=== PATIENT | male | born 1950 | race Caucasian/White ===

== ENCOUNTER 2018-01-04 17:50 | Inpatient (IN) | payer MEDICARE, MEDICAID ==
[~2018-01-04] VITALS: Ht 182.9 cm; Wt 109.3 kg
[~2018-01-04 17:50] MED LIST: ALBU18HF2 INH; BUDE10.2 INH; BUPR-94 PO; DOL10T PO; DULO20CA50 PO; FURO20TA4 PO; GABA-532 PO; HYDR-565 PO; MIRT45TA6 PO; NAPR-1166 PO; OMEP40CA37 PO; POTA8CAP9 PO; SIMV20TA PO; TERA2CAP4 PO
[2018-01-04] MEDS ORDERED: ipratropium/albuterol 3ml nebule NEB ONE (18:20)
[2018-01-04 18:23] LABS: BASOPHILS % (AUTO) 0.2 % (0-1); EOSINOPHILS # (AUTO) 0.3 X10'3 (0-0.9); EOSINOPHILS % (AUTO) 2.3 % (0-6); HEMATOCRIT 34.3 % (42.0-52.0); HEMOGLOBIN 11.5 g/dl (14.0-17.9); LYMPHOCYTES # (AUTO) 1.7 X10'3 (1.1-4.8); LYMPHOCYTES % (AUTO) 15.7 % (21-51); MEAN CORPUSCULAR HEMOGLOBIN 34.1 PG (27.0-31.0); MEAN CORPUSCULAR HGB CONC 33.6 % (33.0-36.5); MEAN CORPUSCULAR VOLUME 101.4 FL (78-98); MEAN PLATELET VOLUME 7.5 FL (7.4-10.4); MONOCYTES # (AUTO) 0.5 X10'3 (0-0.9); MONOCYTES % (AUTO) 4.8 % (2-12); NEUTROPHILS # (AUTO) 8.4 X10'3 (1.8-7.7); PLATELET COUNT 312 X10'3 (140-440); RED BLOOD COUNT 3.38 X10'6 (4.70-6.10); RED CELL DISTRIBUTION WIDTH 16.3 % (11.5-14.5); WHITE BLOOD COUNT 10.9 X10'3 (4.5-11.0)
[2018-01-04 18:33] LABS: INR 1.1 INR; PARTIAL THROMBOPLASTIN TIME 37 SECONDS (22-32); PROTHROMBIN TIME 11.3 SECONDS (9.0-12.0)
[2018-01-04] MEDS ORDERED: HYDROcodone/acetaminophen 10/325mg tab PO ONE (18:35)
[2018-01-04] MEDS ORDERED: ondansetron 4mg rapidly disintigrating tab PO ONE (18:35)
[2018-01-04 18:46] LABS: ALANINE AMINOTRANSFERASE 154 U/L (12-78); ALBUMIN 2.2 G/DL (3.4-5.0); ALBUMIN/GLOBULIN RATIO 0.4 (1.1-1.5); ALKALINE PHOSPHATASE 119 IU/L (46-116); ANION GAP 7 (8-16); ASPARTATE AMINO TRANSFERASE 117 U/L (10-37); BILIRUBIN,TOTAL 0.3 MG/DL (0.1-1.0); BLOOD UREA NITROGEN 16 MG/DL (7-18); BUN/CREATININE RATIO 16.3 (5.4-32.0); CALCIUM 8.5 MG/DL (8.5-10.1); CHLORIDE 97 MMOL/L (99-107); CREATININE 0.98 MG/DL (0.60-1.10); GLUCOSE 118 MG/DL (70-104); POTASSIUM 4.3 MMOL/L (3.5-5.1); SODIUM 138 MMOL/L (135-145); TOTAL CARBON DIOXIDE 34.5 MMOL/L (24-32); TOTAL PROTEIN 7.4 G/DL (6.4-8.2); eGFR 77 ML/MIN
[2018-01-04] MEDS ORDERED: azithromycin/NS 500mg/250ml 250 ML IV ONE (19:00)
[2018-01-04 19:25] LABS: MAGNESIUM 1.9 MG/DL (1.5-2.4)
[2018-01-04] MEDS ORDERED: normal saline 1000ML IV soln IVB ONE (19:30)
[2018-01-04] MEDS ORDERED: cefepime 2g/NS 100ml ADVANTAGE 100 ML IV SCH (20:00)
[2018-01-04] MEDS ORDERED: vancomycin/NS 1 GM ADD-VANTAGE 250 ML IV SCH (20:00)
[2018-01-04] MEDS ORDERED: vancomycin/NS 1 GM ADD-VANTAGE 250 ML X 1 DOSE IV ONE (20:35)
[2018-01-04] MEDS ORDERED: acetaminophen 325mg tablet PO PRN (22:10)
[2018-01-04] MEDS ORDERED: ipratropium/albuterol 3ml nebule NEB PRN (22:10)
[2018-01-04] MEDS ORDERED: mag hydrox/Alum hydrox/simeth 30ml oral suspension PO PRN (22:10)
[2018-01-04] MEDS ORDERED: magnesium hydroxide 30ml (MOM) UD suspension PO PRN (22:10)
[2018-01-04] MEDS: normal saline 1000ml 1,000 ML IV SCH (22:36)
[2018-01-05] MEDS ORDERED: rivaroxaban 20mg tablet PO SCH (08:00)
[2018-01-05] MEDS ORDERED: furosemide 20MG tablet PO SCH (08:00)
[2018-01-05] MEDS ORDERED: HYDROcodone/acetaminophen 10/325mg tab PO PRN ×2 (08:00→14:20)
[2018-01-05] MEDS ORDERED: naproxen 375mg tablet PO SCH (08:00)
[2018-01-05 08:34] LABS: BASOPHILS % (AUTO) 0.3 % (0-1); EOSINOPHILS # (AUTO) 0.2 X10'3 (0-0.9); EOSINOPHILS % (AUTO) 2.6 % (0-6); HEMATOCRIT 32.3 % (42.0-52.0); HEMOGLOBIN 10.9 g/dl (14.0-17.9); LYMPHOCYTES # (AUTO) 1.2 X10'3 (1.1-4.8); MEAN CORPUSCULAR HGB CONC 33.8 % (33.0-36.5); MEAN CORPUSCULAR VOLUME 100.7 FL (78-98); MEAN PLATELET VOLUME 7.6 FL (7.4-10.4); MONOCYTES # (AUTO) 0.6 X10'3 (0-0.9); MONOCYTES % (AUTO) 7.3 % (2-12); NEUTROPHILS # (AUTO) 6.2 X10'3 (1.8-7.7); NEUTROPHILS % (AUTO) 74.8 % (42-75); PLATELET COUNT 331 X10'3 (140-440); RED CELL DISTRIBUTION WIDTH 16.4 % (11.5-14.5); WHITE BLOOD COUNT 8.2 X10'3 (4.5-11.0)
[2018-01-05 08:52] LABS: ALANINE AMINOTRANSFERASE 125 U/L (12-78); ALBUMIN 2.1 G/DL (3.4-5.0); ALBUMIN/GLOBULIN RATIO 0.4 (1.1-1.5); ALKALINE PHOSPHATASE 108 IU/L (46-116); ANION GAP 4 (8-16); ASPARTATE AMINO TRANSFERASE 83 U/L (10-37); BILIRUBIN,TOTAL 0.4 MG/DL (0.1-1.0); BLOOD UREA NITROGEN 10 MG/DL (7-18); BUN/CREATININE RATIO 14.7 (5.4-32.0); CALCIUM 8.7 MG/DL (8.5-10.1); CHLORIDE 101 MMOL/L (99-107); CREATININE 0.68 MG/DL (0.60-1.10); GLUCOSE 89 MG/DL (70-104); POTASSIUM 4.3 MMOL/L (3.5-5.1); SODIUM 142 MMOL/L (135-145); TOTAL PROTEIN 7.2 G/DL (6.4-8.2); eGFR > 90 ML/MIN
[2018-01-05 09:00] VITALS: BP 120/74
[2018-01-05] MEDS: duloxetine 20mg capsule.DR PO SCH (09:02)
[2018-01-05] MEDS: furosemide 20 MG/2 ML vial IV SCH ×2 (09:05→19:59)
[2018-01-05] MEDS: cefepime 2g/NS 100ml ADVANTAGE 100 ML IV SCH ×2 (09:06→19:59)
[2018-01-05] MEDS: potassium chloride 8mEq ER tablet PO SCH (09:06)
[2018-01-05] MEDS: apixaban 5mg tablet PO SCH ×2 (09:06→19:57)
[2018-01-05] MEDS: atorvastatin 10mg tablet PO SCH (09:07)
[2018-01-05] MEDS: predniSONE 20 mg tablet PO SCH (09:08)
[2018-01-05] MEDS: gabapentin 300mg capsule PO SCH (09:08)
[2018-01-05] MEDS: fluticasone/vilanterol 200mcg/25mcg inhaler IH SCH (09:21)
[2018-01-05] MEDS: normal saline 1000ml 1,000 ML IV SCH ×2 (09:23→18:09)
[2018-01-05 11:40] VITALS: BP 116/64
[2018-01-05 19:30] VITALS: BP 124/83
[2018-01-05] MEDS: lactobacillus rhamnosus 10,000 MMU CELLS/CAPSULE PO SCH (19:57)
[2018-01-05] MEDS: HYDROcodone/acetaminophen 10/325mg tab PO PRN (19:58)
[2018-01-05] MEDS: methadone 10mg tablet PO SCH (21:47)
[2018-01-06] VITALS: BP 128/78
[2018-01-06] MEDS: normal saline 1000ml 1,000 ML IV SCH ×2 (00:28→11:36)
[2018-01-06] MEDS ORDERED: VANCOMYCIN LEVEL IV ONE (03:30)
[2018-01-06 03:56] LABS: BASOPHILS # (AUTO) 0.1 X10'3 (0-0.2); BASOPHILS % (AUTO) 1.2 % (0-1); HEMATOCRIT 31.9 % (42.0-52.0); LYMPHOCYTES # (AUTO) 1.3 X10'3 (1.1-4.8); LYMPHOCYTES % (AUTO) 25.7 % (21-51); MEAN CORPUSCULAR HEMOGLOBIN 33.8 PG (27.0-31.0); MEAN CORPUSCULAR HGB CONC 34.4 % (33.0-36.5); MEAN CORPUSCULAR VOLUME 98.3 FL (78-98); MEAN PLATELET VOLUME 8.4 FL (7.4-10.4); MONOCYTES # (AUTO) 0.4 X10'3 (0-0.9); MONOCYTES % (AUTO) 8.3 % (2-12); NEUTROPHILS # (AUTO) 3.2 X10'3 (1.8-7.7); NEUTROPHILS % (AUTO) 63.8 % (42-75); PLATELET COUNT 251 X10'3 (140-440); RED BLOOD COUNT 3.25 X10'6 (4.70-6.10); RED CELL DISTRIBUTION WIDTH 18.3 % (11.5-14.5)
[2018-01-06 06:08] LABS: ALANINE AMINOTRANSFERASE 129 U/L (12-78); ALBUMIN 1.9 G/DL (3.4-5.0); ALBUMIN/GLOBULIN RATIO 0.4 (1.1-1.5); ALKALINE PHOSPHATASE 100 IU/L (46-116); ANION GAP 2 (8-16); ASPARTATE AMINO TRANSFERASE 105 U/L (10-37); BILIRUBIN,TOTAL 0.3 MG/DL (0.1-1.0); BLOOD UREA NITROGEN 15 MG/DL (7-18); BUN/CREATININE RATIO 21.4 (5.4-32.0); CALCIUM 8.6 MG/DL (8.5-10.1); CHLORIDE 104 MMOL/L (99-107); GLUCOSE 98 MG/DL (70-104); POTASSIUM 4.3 MMOL/L (3.5-5.1); SODIUM 144 MMOL/L (135-145); TOTAL CARBON DIOXIDE 38.2 MMOL/L (24-32); TOTAL PROTEIN 6.9 G/DL (6.4-8.2); VANCOMYCIN,TROUGH 15.1 UG/ML (6.0-14.0); eGFR > 90 ML/MIN
[2018-01-06] MEDS: fluticasone/vilanterol 200mcg/25mcg inhaler IH SCH (07:42)
[2018-01-06 08:00] VITALS: BP 124/78
[2018-01-06] MEDS: cefepime 2g/NS 100ml ADVANTAGE 100 ML IV SCH ×2 (08:13→20:22)
[2018-01-06] MEDS: furosemide 20 MG/2 ML vial IV SCH ×2 (08:16→20:23)
[2018-01-06] MEDS: lactobacillus rhamnosus 10,000 MMU CELLS/CAPSULE PO SCH ×2 (08:20→20:23)
[2018-01-06] MEDS: apixaban 5mg tablet PO SCH ×2 (08:21→20:23)
[2018-01-06] MEDS: duloxetine 20mg capsule.DR PO SCH (08:21)
[2018-01-06] MEDS: potassium chloride 8mEq ER tablet PO SCH (08:21)
[2018-01-06] MEDS: atorvastatin 10mg tablet PO SCH (08:22)
[2018-01-06] MEDS: gabapentin 300mg capsule PO SCH (08:23)
[2018-01-06] MEDS: predniSONE 20 mg tablet PO SCH (08:23)
[2018-01-06] MEDS: HYDROcodone/acetaminophen 10/325mg tab PO PRN ×3 (08:26→21:37)
[2018-01-06 11:00] VITALS: BP 117/72
[2018-01-06 18:00] VITALS: BP 117/64
[2018-01-06] MEDS: methadone 10mg tablet PO SCH (20:23)
[2018-01-07] VITALS: BP 126/72
[2018-01-07] MEDS: normal saline 1000ml 1,000 ML IV SCH ×3 (00:09→11:21)
[2018-01-07] MEDS: HYDROcodone/acetaminophen 10/325mg tab PO PRN ×3 (05:13→17:33)
[2018-01-07 05:56] LABS: BASOPHILS % (AUTO) 0.3 % (0-1); EOSINOPHILS # (AUTO) 0.1 X10'3 (0-0.9); EOSINOPHILS % (AUTO) 1.5 % (0-6); HEMATOCRIT 33.9 % (42.0-52.0); HEMOGLOBIN 11.1 g/dl (14.0-17.9); LYMPHOCYTES # (AUTO) 2.1 X10'3 (1.1-4.8); LYMPHOCYTES % (AUTO) 35.3 % (21-51); MEAN CORPUSCULAR HEMOGLOBIN 33.4 PG (27.0-31.0); MEAN CORPUSCULAR HGB CONC 32.9 % (33.0-36.5); MEAN CORPUSCULAR VOLUME 101.4 FL (78-98); MEAN PLATELET VOLUME 7.8 FL (7.4-10.4); MONOCYTES # (AUTO) 0.5 X10'3 (0-0.9); NEUTROPHILS # (AUTO) 3.3 X10'3 (1.8-7.7); NEUTROPHILS % (AUTO) 54.9 % (42-75); PLATELET COUNT 381 X10'3 (140-440); RED BLOOD COUNT 3.34 X10'6 (4.70-6.10)
[2018-01-07 06:42] LABS: ALANINE AMINOTRANSFERASE 122 U/L (12-78); ALBUMIN 2.1 G/DL (3.4-5.0); ALBUMIN/GLOBULIN RATIO 0.4 (1.1-1.5); ALKALINE PHOSPHATASE 94 IU/L (46-116); ANION GAP 6 (8-16); ASPARTATE AMINO TRANSFERASE 74 U/L (10-37); BILIRUBIN,TOTAL 0.3 MG/DL (0.1-1.0); BLOOD UREA NITROGEN 16 MG/DL (7-18); BUN/CREATININE RATIO 22.5 (5.4-32.0); CALCIUM 8.7 MG/DL (8.5-10.1); CHLORIDE 103 MMOL/L (99-107); CREATININE 0.71 MG/DL (0.60-1.10); GLUCOSE 89 MG/DL (70-104); SODIUM 143 MMOL/L (135-145); TOTAL CARBON DIOXIDE 34.5 MMOL/L (24-32); TOTAL PROTEIN 7.1 G/DL (6.4-8.2); eGFR > 90 ML/MIN
[2018-01-07 08:00] VITALS: BP 124/84
[2018-01-07] MEDS: cefepime 2g/NS 100ml ADVANTAGE 100 ML IV SCH ×2 (08:19→21:26)
[2018-01-07] MEDS: duloxetine 20mg capsule.DR PO SCH (08:27)
[2018-01-07] MEDS: gabapentin 300mg capsule PO SCH (08:27)
[2018-01-07] MEDS: lactobacillus rhamnosus 10,000 MMU CELLS/CAPSULE PO SCH ×2 (08:27→21:26)
[2018-01-07] MEDS: atorvastatin 10mg tablet PO SCH (08:27)
[2018-01-07] MEDS: predniSONE 20 mg tablet PO SCH (08:28)
[2018-01-07] MEDS: potassium chloride 8mEq ER tablet PO SCH (08:28)
[2018-01-07] MEDS: furosemide 20 MG/2 ML vial IV SCH ×2 (08:31→21:26)
[2018-01-07] MEDS: apixaban 5mg tablet PO SCH ×2 (08:31→21:26)
[2018-01-07] MEDS: fluticasone/vilanterol 200mcg/25mcg inhaler IH SCH (10:27)
[2018-01-07 11:00] VITALS: BP 129/79
[2018-01-07 20:00] VITALS: BP 126/80
[2018-01-07] MEDS: methadone 10mg tablet PO SCH (21:26)
[2018-01-07 23:00] VITALS: BP 134/79
[2018-01-08] MEDS: HYDROcodone/acetaminophen 10/325mg tab PO PRN ×4 (00:50→21:23)
[2018-01-08 06:00] VITALS: BP 149/82
[2018-01-08] MEDS: normal saline 1000ml 1,000 ML IV SCH ×2 (06:09→14:35)
[2018-01-08 06:16] LABS: BASOPHILS % (AUTO) 0.2 % (0-1); EOSINOPHILS # (AUTO) 0.1 X10'3 (0-0.9); EOSINOPHILS % (AUTO) 1.4 % (0-6); HEMATOCRIT 34.9 % (42.0-52.0); HEMOGLOBIN 11.6 g/dl (14.0-17.9); LYMPHOCYTES # (AUTO) 1.9 X10'3 (1.1-4.8); LYMPHOCYTES % (AUTO) 36.1 % (21-51); MEAN CORPUSCULAR HEMOGLOBIN 33.6 PG (27.0-31.0); MEAN CORPUSCULAR HGB CONC 33.3 % (33.0-36.5); MEAN CORPUSCULAR VOLUME 100.8 FL (78-98); MEAN PLATELET VOLUME 7.9 FL (7.4-10.4); MONOCYTES # (AUTO) 0.4 X10'3 (0-0.9); MONOCYTES % (AUTO) 7.2 % (2-12); NEUTROPHILS % (AUTO) 55.1 % (42-75); PLATELET COUNT 360 X10'3 (140-440); RED BLOOD COUNT 3.46 X10'6 (4.70-6.10); WHITE BLOOD COUNT 5.4 X10'3 (4.5-11.0)
[2018-01-08 06:33] LABS: ALANINE AMINOTRANSFERASE 111 U/L (12-78); ALBUMIN 2.4 G/DL (3.4-5.0); ALBUMIN/GLOBULIN RATIO 0.5 (1.1-1.5); ALKALINE PHOSPHATASE 91 IU/L (46-116); ANION GAP 5 (8-16); ASPARTATE AMINO TRANSFERASE 62 U/L (10-37); BILIRUBIN,TOTAL 0.3 MG/DL (0.1-1.0); BLOOD UREA NITROGEN 17 MG/DL (7-18); BUN/CREATININE RATIO 26.2 (5.4-32.0); CALCIUM 8.9 MG/DL (8.5-10.1); CHLORIDE 100 MMOL/L (99-107); CREATININE 0.65 MG/DL (0.60-1.10); GLUCOSE 76 MG/DL (70-104); POTASSIUM 3.9 MMOL/L (3.5-5.1); SODIUM 143 MMOL/L (135-145); TOTAL CARBON DIOXIDE 38.4 MMOL/L (24-32); TOTAL PROTEIN 7.6 G/DL (6.4-8.2); eGFR > 90 ML/MIN
[2018-01-08] MEDS: fluticasone/vilanterol 200mcg/25mcg inhaler IH SCH (07:15)
[2018-01-08] MEDS: predniSONE 20 mg tablet PO SCH (08:19)
[2018-01-08] MEDS: lactobacillus rhamnosus 10,000 MMU CELLS/CAPSULE PO SCH ×2 (08:19→21:09)
[2018-01-08] MEDS: apixaban 5mg tablet PO SCH ×2 (08:19→21:09)
[2018-01-08] MEDS: potassium chloride 8mEq ER tablet PO SCH (08:19)
[2018-01-08] MEDS: atorvastatin 10mg tablet PO SCH (08:19)
[2018-01-08] MEDS: cefepime 2g/NS 100ml ADVANTAGE 100 ML IV SCH ×2 (08:20→21:10)
[2018-01-08] MEDS: furosemide 20 MG/2 ML vial IV SCH ×2 (08:20→21:10)
[2018-01-08] MEDS: gabapentin 300mg capsule PO SCH (08:24)
[2018-01-08] MEDS: duloxetine 20mg capsule.DR PO SCH (08:24)
[2018-01-08 11:00] VITALS: BP 158/85
[2018-01-08 20:00] VITALS: BP 130/72
[2018-01-08] MEDS: methadone 10mg tablet PO SCH (21:09)
[2018-01-09] VITALS: BP 129/80
[2018-01-09] MEDS: normal saline 1000ml 1,000 ML IV SCH ×2 (03:53→15:12)
[2018-01-09 05:14] LABS: BASOPHILS % (AUTO) 0.3 % (0-1); EOSINOPHILS # (AUTO) 0.1 X10'3 (0-0.9); EOSINOPHILS % (AUTO) 1.4 % (0-6); HEMATOCRIT 33.6 % (42.0-52.0); HEMOGLOBIN 11.4 g/dl (14.0-17.9); LYMPHOCYTES # (AUTO) 2.3 X10'3 (1.1-4.8); LYMPHOCYTES % (AUTO) 35.4 % (21-51); MEAN CORPUSCULAR HEMOGLOBIN 33.6 PG (27.0-31.0); MEAN CORPUSCULAR VOLUME 98.8 FL (78-98); MEAN PLATELET VOLUME 7.7 FL (7.4-10.4); MONOCYTES # (AUTO) 0.5 X10'3 (0-0.9); MONOCYTES % (AUTO) 7.4 % (2-12); NEUTROPHILS # (AUTO) 3.7 X10'3 (1.8-7.7); NEUTROPHILS % (AUTO) 55.5 % (42-75); PLATELET COUNT 380 X10'3 (140-440); RED CELL DISTRIBUTION WIDTH 16.1 % (11.5-14.5); WHITE BLOOD COUNT 6.6 X10'3 (4.5-11.0)
[2018-01-09 05:38] LABS: ALANINE AMINOTRANSFERASE 93 U/L (12-78); ALBUMIN 2.4 G/DL (3.4-5.0); ALBUMIN/GLOBULIN RATIO 0.5 (1.1-1.5); ALKALINE PHOSPHATASE 86 IU/L (46-116); ANION GAP 4 (8-16); ASPARTATE AMINO TRANSFERASE 48 U/L (10-37); BILIRUBIN,TOTAL 0.3 MG/DL (0.1-1.0); BLOOD UREA NITROGEN 17 MG/DL (7-18); BUN/CREATININE RATIO 21.8 (5.4-32.0); CALCIUM 8.7 MG/DL (8.5-10.1); CHLORIDE 101 MMOL/L (99-107); CREATININE 0.78 MG/DL (0.60-1.10); GLUCOSE 84 MG/DL (70-104); POTASSIUM 3.8 MMOL/L (3.5-5.1); SODIUM 143 MMOL/L (135-145); TOTAL CARBON DIOXIDE 38.3 MMOL/L (24-32); TOTAL PROTEIN 7.2 G/DL (6.4-8.2); eGFR > 90 ML/MIN
[2018-01-09 07:00] VITALS: BP 144/87
[2018-01-09] MEDS: fluticasone/vilanterol 200mcg/25mcg inhaler IH SCH (08:00)
[2018-01-09] MEDS: gabapentin 300mg capsule PO SCH (08:29)
[2018-01-09] MEDS: HYDROcodone/acetaminophen 10/325mg tab PO PRN ×3 (08:29→21:46)
[2018-01-09] MEDS: atorvastatin 10mg tablet PO SCH (08:29)
[2018-01-09] MEDS: predniSONE 20 mg tablet PO SCH (08:29)
[2018-01-09] MEDS: potassium chloride 8mEq ER tablet PO SCH (08:29)
[2018-01-09] MEDS: lactobacillus rhamnosus 10,000 MMU CELLS/CAPSULE PO SCH ×2 (08:29→20:31)
[2018-01-09] MEDS: duloxetine 20mg capsule.DR PO SCH (08:29)
[2018-01-09] MEDS: cefepime 2g/NS 100ml ADVANTAGE 100 ML IV SCH ×2 (08:30→20:30)
[2018-01-09] MEDS: apixaban 5mg tablet PO SCH ×2 (08:30→20:31)
[2018-01-09] MEDS: furosemide 20 MG/2 ML vial IV SCH ×2 (08:32→20:32)
[2018-01-09 10:00] VITALS: BP 131/74
[2018-01-09] MEDS: methylPREDNISolone sod succ/PF 40mg inj. IV SCH ×2 (15:04→20:30)
[2018-01-09 20:00] VITALS: BP 135/85
[2018-01-09] MEDS: methadone 10mg tablet PO SCH (20:31)
[2018-01-10] VITALS: BP 148/79
[2018-01-10] MEDS: methylPREDNISolone sod succ/PF 40mg inj. IV SCH ×4 (02:08→19:18)
[2018-01-10] MEDS: HYDROcodone/acetaminophen 10/325mg tab PO PRN ×3 (04:48→19:13)
[2018-01-10 07:00] VITALS: BP 139/71
[2018-01-10] MEDS: normal saline 1000ml 1,000 ML IV SCH ×3 (08:09→18:09)
[2018-01-10] MEDS: gabapentin 300mg capsule PO SCH (08:22)
[2018-01-10] MEDS: duloxetine 20mg capsule.DR PO SCH (08:22)
[2018-01-10] MEDS: potassium chloride 8mEq ER tablet PO SCH (08:22)
[2018-01-10] MEDS: apixaban 5mg tablet PO SCH ×2 (08:22→19:18)
[2018-01-10] MEDS: lactobacillus rhamnosus 10,000 MMU CELLS/CAPSULE PO SCH ×2 (08:23→19:17)
[2018-01-10] MEDS: cefepime 2g/NS 100ml ADVANTAGE 100 ML IV SCH ×2 (08:23→19:18)
[2018-01-10] MEDS: atorvastatin 10mg tablet PO SCH (08:23)
[2018-01-10] MEDS: furosemide 20 MG/2 ML vial IV SCH ×2 (08:23→19:17)
[2018-01-10] MEDS: fluticasone/vilanterol 200mcg/25mcg inhaler IH SCH (09:04)
[2018-01-10 11:00] VITALS: BP 136/87
[2018-01-10 19:00] VITALS: BP 141/82
[2018-01-10] MEDS: methadone 10mg tablet PO SCH (21:34)
[2018-01-11] VITALS: BP 151/86
[2018-01-11] MEDS: methylPREDNISolone sod succ/PF 40mg inj. IV SCH ×3 (01:07→13:14)
[2018-01-11] MEDS ORDERED: gabapentin 300mg capsule PO ONE (01:45)
[2018-01-11] MEDS ORDERED: VANCOMYCIN LEVEL IV NR (03:30)
[2018-01-11] MEDS: normal saline 1000ml 1,000 ML IV SCH ×2 (04:21→15:28)
[2018-01-11] MEDS: HYDROcodone/acetaminophen 10/325mg tab PO PRN ×2 (04:49→11:06)
[2018-01-11 04:52] LABS: VANCOMYCIN,TROUGH 19.8 UG/ML (6.0-14.0)
[2018-01-11 06:45] VITALS: BP 161/74
[2018-01-11] MEDS: gabapentin 300mg capsule PO SCH (07:37)
[2018-01-11] MEDS: duloxetine 20mg capsule.DR PO SCH (07:37)
[2018-01-11] MEDS: potassium chloride 8mEq ER tablet PO SCH (07:37)
[2018-01-11] MEDS: atorvastatin 10mg tablet PO SCH (07:37)
[2018-01-11] MEDS: apixaban 5mg tablet PO SCH (07:37)
[2018-01-11] MEDS: cefepime 2g/NS 100ml ADVANTAGE 100 ML IV SCH (07:37)
[2018-01-11] MEDS: lactobacillus rhamnosus 10,000 MMU CELLS/CAPSULE PO SCH (07:37)
[2018-01-11] MEDS: furosemide 20 MG/2 ML vial IV SCH (07:38)
[2018-01-11] MEDS: fluticasone/vilanterol 200mcg/25mcg inhaler IH SCH (09:44)
[2018-01-11 12:00] VITALS: BP 131/69
[2018-01-11] MEDS ORDERED: HYDROcodone/acetaminophen 10/325mg tab PO PRN (12:45)
== END 2018-01-11 18:19 | DRG 291 ==
LOC: ER 17:51 → ED HOLD 22:09 → SUR 3N 01-05 07:37
PROVIDERS: ADMIT Family Medicine; ATTEND Internal Medicine
DX: I11.0 Hypertensive heart disease with heart failure (principal); J18.9 Pneumonia, unspecified organism; J96.21 Acute and chronic respiratory failure with hypoxia; J96.22 Acute and chronic respiratory failure with hypercapnia; J44.0 Chronic obstructive pulmonary disease with (acute) lower respiratory infection; J44.1 Chronic obstructive pulmonary disease with (acute) exacerbation; I50.43 Acute on chronic combined systolic (congestive) and diastolic (congestive) heart failure; D69.6 Thrombocytopenia, unspecified; E78.5 Hyperlipidemia, unspecified; M54.9 Dorsalgia, unspecified; E78.00 Pure hypercholesterolemia, unspecified; G89.4 Chronic pain syndrome; K21.9 Gastro-esophageal reflux disease without esophagitis; Z66 Do not resuscitate; Z88.8 Allergy status to other drugs, medicaments and biological substances; Z79.899 Other long term (current) drug therapy; Z86.711 Personal history of pulmonary embolism
CPT/HCPCS: 36415; 71045; 71046; 80053; 80202; 83605; 83735; 83880; 84145; 84484; 85025; 85610; 85730; 87040; 87070; 87502; 87503; 93005; 94640; 94760; 96365; 97110; 97116; 97161; 97530; 99285; A4353; J0456; J0692; J1940; J2920; J3370; J7030; J7512